=== PATIENT | female | born 1980 | race African-American/Black ===

== ENCOUNTER 2019-03-31 13:09 | Emergency (ER) | payer SELFPAY ==
[~2019-03-31] VITALS: Ht 162.6 cm; Wt 63.5 kg
[2019-03-31 13:50] VITALS: BP 124/67
== END 2019-03-31 14:10 | disposition home or self-care (01) ==
LOC: ER 13:09
DX: J20.9 Acute bronchitis, unspecified (principal); J03.90 Acute tonsillitis, unspecified; F17.210 Nicotine dependence, cigarettes, uncomplicated
CPT/HCPCS: 93005

== ENCOUNTER 2019-10-17 10:59 | Emergency (ER) | payer SELFPAY ==
[~2019-10-17] VITALS: Ht 162.6 cm; Wt 72.6 kg
[2019-10-17 11:49] VITALS: BP 118/71
== END 2019-10-17 12:15 | disposition home or self-care (01) ==
LOC: ER 10:59
DX: M79.645 Pain in left finger(s) (principal); F17.210 Nicotine dependence, cigarettes, uncomplicated; F12.10 Cannabis abuse, uncomplicated; W18.39XA Other fall on same level, initial encounter; Y93.89 Activity, other specified; Y92.9 Unspecified place or not applicable; Y99.8 Other external cause status
CPT/HCPCS: 73140

== ENCOUNTER 2021-12-04 09:15 | Emergency (ER) | payer MEDICAID ==
[~2021-12-04] VITALS: Ht 162.6 cm; Wt 68.0 kg
[2021-12-04 09:38] VITALS: BP 107/68
[2021-12-04 10:07] LABS: Urine Bacteria NONE SEEN /hpf (None Seen); Urine Blood Negative /uL (Negative); Urine Mucus FEW (None Seen); Urine Specific Gravity 1.016 (1.001-1.035); Urine WBC <1 /hpf (0 - 5)
== END 2021-12-04 10:12 | disposition left against medical advice (07) ==
LOC: ER 09:15
DX: R51.9 Headache, unspecified (principal); R10.2 Pelvic and perineal pain; Z53.21 Procedure and treatment not carried out due to patient leaving prior to being seen by health care provider
CPT/HCPCS: 81001; 81025